=== PATIENT | male | born 1985 | race Caucasian/White ===

== ENCOUNTER 2016-09-29 23:07 | Emergency (ER) | payer OTHER, MEDICARE ==
[~2016-09-29] VITALS: Ht 160 cm; Wt 74.8 kg
[2016-09-29 23:16] VITALS: BP 144/80
--- NOTE | 2016-09-30 02:04 | ED SKIN/ALLERGY COMPLAINT ---
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 UNABLE TO REMOVE SHOE AT TRIAGE Triage Nurses Notes Reviewed? 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 The patient states that he has a history of pressure ulcers of his feet which usually last for about 2 days. The patient states that he has full sensation of his feet but uses the walker due to balance issues and reduced range of motion of his bilateral lower extremities. The patient also has bilateral lower extremity braces. The patient states that he gets these ulcers due to exercise which is required to help him maintain his weight to prevent any further issues with his hips. He states that he is followed by a high lead yarder but noticed some white fluff and was instructed by his nursing friend to come into the ED immediately instead of waiting for a podiatry appointment. The patient denies any numbness or tingling, weakness, changes in appetite, fevers, chills, nausea vomiting, chest pain, shortness of breath, or abdominal pain. (JAYY MARTINEZ,[facility]) Vital Signs & Intake/Output Vital Signs & Intake/Output Vital Signs Date Time Temp Pulse Resp B/P B/P Pulse O2 O2 Flow FiO2 Mean Ox Delivery Rate 09/29 2316 97.7 120 18 144/80 98 Room Air ED Intake and Output 09/30 0000 09/29 1200 Intake Total Output Total Balance Patient 165 lb Weight Reconcile Medications Cephalexin (Keflex) 500 MG CAPSULE 1 CAP PO TID pressure ulcer (SRI MARTINEZ,BRODERICK Lott) Past History Travel History Traveled to [place] past 21 day No Medical History Any Pertinent Medical History? see below for history Neurological: LEUKOENCEPHALITIS EENT: NONE Cardiovascular: NONE Respiratory: NONE Gastrointestinal: NONE Hepatic: NONE Renal: NONE Musculoskeletal: NONE Psychiatric: NONE Endocrine: NONE Blood Disorders: NONE Cancer(s): NONE MIG TIG WELDER/Reproductive: NONE Surgical History Surgical History: b/l hip surgery Psychosocial History What is your primary language [place] Tobacco Use: Never used ETOH Use: occasional use Illicit Drug Use: denies illicit drug use Family History Hx Contributory? No (JAYY MARTINEZ,HUMBERTO) Review of Systems Review of Systems Constitutional: Denies: chills, diaphoresis, fever, malaise, weakness. Respiratory: Denies: cough, short of breath, sputum production. Cardiovascular: Denies: chest pain, peripheral edema. GI: Denies: abdominal pain. Genitourinary: Denies: dysuria, frequency, nocturia. Musculoskeletal: Reports: no symptoms. Skin: Reports: see HPI. Neurological/Psychological: Reports: no symptoms. (JAYY MARTINEZ,HUMBERTO) Physical Exam Physical Exam General Appearance: well developed/nourished, no apparent distress, alert, awake Head: atraumatic, normal appearance Eyes: Bilateral: PERRL, EOMI. Ears, Nose, Throat: normal pharynx Neck: normal inspection, supple, full range of motion Respiratory: normal breath sounds Cardiovascular: regular rate/rhythm Peripheral Pulses: 2+ radial (R), 2+ radial (L), 2+ tibialis posterior (R), 2+ tibialis posterior ( L), 2+ dorsalis pedis (R), 2+ dorsalis pedis (L) Gastrointestinal: normal bowel sounds, soft, non-tender Extremities: .3 inch x .1 inch pressure ulcer on L medial calcaneus reigon. 1 inch diameter erythema surrounding pressure ulcer. slightly warm to the touch., reduced ROM of lower extermities. patient has b/l LE braces for stability. Neurologic/Psych: awake, alert, oriented x 3 Diagram Body: 1) (JAYY MARTINEZ,[facility]) Progress Differential Diagnosis: abscess/cellulitis, contact dermatitis, pressure ulcer Plan of Care: Patient instructed to keep ulcer clean, dry, intact. Keflex 500mg TID x5 days. Follow up with PCP/podiatry. (JAYY MARTINEZ,HUMBERTO) Differential Diagnosis: abscess/cellulitis, contact dermatitis Plan of Care: ABX (SRI MARTINEZ,BRODERICK Lott) Departure Departure Disposition: HOME OR SELF CARE Condition: Stable Clinical Impression Primary Impression: Pressure ulcer Referrals: NATHALY RANGEL MD (PCP/Family) Additional Instructions: Please keep ulcer clean dry and intact. Please use medications as perscribed. Please follow up with your primary care physician in 1 week. Departure Forms: Customer Survey General Discharge Information Prescriptions: Current Visit Scripts Cephalexin (Keflex) 1 CAP PO TID #15 CAP (JAYY MARTINEZ,[facility]) Resident Co-Sign Statement Statement: ED Attending supervision documentation- [X] I saw and evaluated the patient. I have also reviewed all the pertinent lab results and diagnostic results. I agree with the findings and the plan of care as documented in the Resident's documentation. [X] I have reviewed the ED Record and agree with the Resident's documentation. [] Additions or exceptions (if any) to the Resident's note and plan are summarized below: [I have personally seen and examined this patient. I have read the above note and agree with what has been written. Stage II ulcer to his heel. Surrounding erythema. No fluctuance. Start antibiotics and podiatry follow-up.] (SRI MARTINEZ,BRODERICK Lott)
[2016-09-30] MEDS ORDERED: KEFLEX500 M1 PO (02:10)
== END 2016-09-30 02:39 ==
LOC: ERH 23:07
DX: L89.622 Pressure ulcer of left heel, stage 2 (principal)